=== PATIENT | male | born 1965 | race Caucasian/White ===

== ENCOUNTER 2017-02-15 09:23 | Emergency (ER) | payer OTHER ==
[2017-02-15 09:23] VITALS: BMI 24.7
--- NOTE | 2017-02-15 09:46 | ED PDOC ---
HPI: Back Time Seen by Provider: 02/15/17 09:33 Chief Complaint (Nursing): Back Pain History Per: Patient (Sharp right flank pain radiating to front since yesterday. Denies nausea. Assoc with dysuria no fever. No back injury) Onset/Duration Of Symptoms: Days (2) Quality Of Discomfort: Sharp Severity: Moderate Pain Scale Rating Of: 3 Previous Symptoms: Back Pain Associated Symptoms: None Exacerbating Factor(s): Movement Past Medical History Vital Signs: Last Vital Signs Temp 97.7 F 02/15/17 09:28 Pulse 46 L 02/15/17 09:28 Resp 18 02/15/17 09:28 BP 178/81 H 02/15/17 09:28 Pulse Ox 100 02/15/17 09:28 - Medical History PMH: Back Problems, HTN - Family History Family History: States: Unknown Family Hx - Home Medications Home Medications: Ambulatory Orders Medication Instructions Recorded Cyclobenzaprine [Cyclobenzaprine 10 mg PO TID #10 tab 02/15/17 HCl] Naproxen [Naprosyn] 500 mg PO Q12H #20 tab 02/15/17 - Allergies Allergies/Adverse Reactions: Allergies Allergy/AdvReac Type Severity Reaction Status Date / Time No Known Allergies Allergy Verified 06/27/14 16:01 Review of Systems ROS Statement: Except As Marked, All Systems Reviewed And Found Negative Constitutional: Negative for: Fever Gastrointestinal: Negative for: Nausea Genitourinary Male: Positive for: Dysuria Musculoskeletal: Positive for: Back Pain Physical Exam - Physical Exam Appears: Positive for: Non-toxic, Uncomfortable Skin: Positive for: Normal Color, Warm, DRY Gastrointestinal/Abdominal: Positive for: Bowel Sounds, Soft. Negative for: Tenderness Back: Positive for: Normal Inspection, Muscle Spasm. Negative for: Vertebral Tenderness - Laboratory Results Result Diagrams: 02/15/17 10:00 02/15/17 10:00 - ECG O2 Sat by Pulse Oximetry: 100 Disposition - Clinical Impression Clinical Impression: Back pain, Back strain - Patient ED Disposition Is Patient to be Admitted: No Counseled Patient/Family Regarding: Studies Performed, Diagnosis, Need For Followup, Rx Given - Disposition Referrals: [facility] [Outside] Disposition: Routine/Home Disposition Time: 11:12 Condition: FAIR Prescriptions: Cyclobenzaprine [Cyclobenzaprine HCl] 10 mg PO TID #10 tab Naproxen [Naprosyn] 500 mg PO Q12H #20 tab Instructions: Acute Low Back Pain (ED) Print Language: TURKISH
[2017-02-15 10:08] LABS: BASO % 0.4 % (0.0-2.0); EOS # 0.1 K/uL (0.0-0.7); HEMATOCRIT 46.9 % (35.0-51.0); LYMPH # 3.2 K/uL (1.0-4.3); LYMPH % 41.5 % (20.0-40.0); MEAN CELL VOLUME 86.4 fl (80.0-94.0); MEAN CORPUSCULAR HEMOGLOBIN 27.6 pg (27.0-31.0); MEAN CORPUSCULAR HGB CONC 31.9 g/dL (33.0-37.0); MEAN PLATELET VOLUME 8.1 fl (7.2-11.7); MONO # 0.5 K/uL (0.0-0.8); MONO % 6.4 % (0.0-10.0); NEUT # 3.8 K/uL (1.8-7.0); NEUT % 49.7 % (50.0-75.0); RED CELL DISTRIBUTION WIDTH 13.2 % (11.5-14.5); WHITE BLOOD COUNT 7.7 K/uL (4.8-10.8)
[2017-02-15 10:20] LABS: ALB/GLOB RATIO 1.3 (1.0-2.1); ALKALINE PHOSPHATASE 112 U/L (38-126); ALT/SGPT 51 U/L (21-72); AST/SGOT 38 U/L (17-59); BILIRUBIN,TOTAL 1.3 mg/dl (0.2-1.3); BLOOD UREA NITROGEN 18 mg/dl (9-20); CALCIUM 9.7 mg/dL (8.4-10.2); CARBON DIOXIDE 26 mmol/L (22-30); CHLORIDE 104 mmol/L (98-107); GFR AFRICAN-AMERICAN > 60; GLUCOSE,RANDOM 89 mg/dL (75-110); POTASSIUM 4.6 MMOL/L (3.6-5.0); SODIUM 143 mmol/l (132-148); TOTAL PROTEIN 8.6 G/DL (6.3-8.2)
--- NOTE | 2017-02-15 11:03 | US ---
PROCEDURE: Ultrasound of the Kidneys HISTORY: Right flank pain r/o stone COMPARISON: None available. TECHNIQUE: Sonogram of the kidneys. FINDINGS: Examination markedly limited in part due to excessive bowel gas. RIGHT KIDNEY: Measures: 10.6 x 5.1 x 5.7 cm. No obstructing calculus, hydronephrosis, or cyst identified. LEFT KIDNEY: Measures: 10.8 x 5.5 x 5.9 cm. No obstructing calculus, hydronephrosis, or cyst identified. OTHER FINDINGS: Under distention of the urinary bladder limits evaluation. IMPRESSION: Limited study. No obstructing calculus, hydronephrosis, or cyst identified.
[2017-02-15 11:30] VITALS: BP 166/72; PULSE 55; RESP 16; TEMP 97; O2SAT 99
== END 2017-02-15 11:30 | disposition home or self-care (01) ==
LOC: H.ER 09:23
DX: M54.5 Low back pain (principal); R30.0 Dysuria

== ENCOUNTER 2017-04-05 19:17 | Emergency (ER) | payer SELFPAY ==
[2017-04-05 19:18] VITALS: BMI 24.7
[2017-04-05 19:32] VITALS: RESP 16
--- NOTE | 2017-04-05 20:21 | ED PDOC ---
"HPI: Back Time Seen by Provider: 04/05/17 19:22 Chief Complaint (Nursing): Back Pain Chief Complaint (Provider): Flank Pain History Per: Patient History/Exam Limitations: no limitations Onset/Duration Of Symptoms: Days (x3 days) Current Symptoms Are (Timing): Still Present Exacerbating Factor(s): Movement Additional Complaint(s): Susana Amezcua, a 51 year old male, presents to the ED complaining of radiating right sided flank pain x3 days. The patient states that the pain is constant in his lower back and is radiating to his right groin. He states that the pain is exacerbated by movement and bending. The patient reports that he took ibuprofen which offered only mild relief. He states that he had an US done here at [place] last year and the results were normal. Denies vomiting, hematuria, dysuria,rash, fevers. - Risk Factors AAA Risk Factors: Pos: Older Than 49 Years Of Age Past Medical History Reviewed: Historical Data, Nursing Documentation, Vital Signs Vital Signs: Last Vital Signs Temp 97.6 F 04/05/17 19:30 Pulse 57 L 04/05/17 19:30 Resp 16 04/05/17 19:30 BP 162/101 H 04/05/17 19:30 Pulse Ox 100 04/05/17 19:30 - Medical History PMH: Back Problems, HTN - Family History Family History: States: Unknown Family Hx - Home Medications Home Medications: Ambulatory Orders Medication Instructions Recorded Cyclobenzaprine [Cyclobenzaprine 10 mg PO TID #15 tab 04/05/17 HCl] Ibuprofen [Motrin] 600 mg PO Q6H 04/05/17 Naproxen 500 mg PO BID #20 tab 04/05/17 - Allergies Allergies/Adverse Reactions: Allergies Allergy/AdvReac Type Severity Reaction Status Date / Time No Known Allergies Allergy Verified 06/27/14 16:01 Review of Systems ROS Statement: Except As Marked, All Systems Reviewed And Found Negative Constitutional: Negative for: Fever Genitourinary Male: Negative for: Dysuria, Hematuria, Rash Musculoskeletal: Positive for: Back Pain (Right sided flank pain), Other (Groin Pain) Skin: Negative for: Rash Physical Exam - Reviewed Nursing Documentation Reviewed: Yes Vital Signs Reviewed: Yes - Physical Exam Appears: Positive for: Non-toxic, No Acute Distress Head Exam: Positive for: ATRAUMATIC, NORMAL INSPECTION, NORMOCEPHALIC Skin: Positive for: Normal Color, Warm, Dry Eye Exam: Positive for: Normal appearance, EOMI, PERRL ENT: Positive for: Normal ENT Inspection Neck: Positive for: Normal, Painless ROM, Supple Cardiovascular/Chest: Positive for: Regular Rate, Rhythm, Chest Non Tender. Negative for: Tachycardia Respiratory: Positive for: Normal Breath Sounds. Negative for: Wheezing, Respiratory Distress Gastrointestinal/Abdominal: Positive for: Normal Exam, Bowel Sounds, Soft. Negative for: Tenderness, Guarding, Rebound Back: Positive for: Normal Inspection. Negative for: L CVA Tenderness, R CVA Tenderness Extremity: Positive for: Normal ROM. Negative for: Tenderness, Pedal Edema, Deformity, Swelling Neurologic/Psych: Positive for: Alert, Oriented, Gait - Laboratory Results Result Diagrams: 04/05/17 20:08 04/05/17 20:08 - ECG O2 Sat by Pulse Oximetry: 100 (RA) Pulse Ox Interpretation: Normal - Progress Re-evaluation Time: 22:39 Condition: Re-examined, Improved Medical Decision Making Medical Decision Makin Initial impression: 51 year old male presenting with flank pain Differentials: lumbar neuropathy, musculoskeletal pain, less likely renal colic , early presentation of shingles w/o rash Initial Plan: * CT ABD&PELV w/o PO or IV contrast * Basic Metabolic Panel * Udip * CBC * Flexeril 10mg PO * Toradol 30mg IVP * Reevaluation * * COMPARISON: No relevant prior studies available. FINDINGS: Lower thorax: 0.2 cm subpleural nodule LEFT lower lobe. ABDOMEN: Liver: Unremarkable. Gallbladder and bile ducts: No calcified stones. No ductal dilation. Pancreas: Unremarkable. No ductal dilation. Spleen: No splenomegaly. Adrenals: No mass. Kidneys and ureters: No renal calculi. No hydronephrosis. Stomach and bowel: No definite mural thickening. No obstruction. Appendix: Normal caliber. No inflammation. PELVIS: Bladder: Apparent mild bladder wall thickening. Incomplete distention, limiting evaluation. No stones. Reproductive: Mildly enlarged prostate. ABDOMEN and PELVIS: Intraperitoneal space: No significant fluid collection. No free air. Bones/joints: Probable bone islands. No acute fracture. Soft tissues: Small RIGHT inguinal hernia containing fat. Vasculature: Unremarkable. No aneurysm. SUSANA ARZATE | Final Radiology Report CONFIDENTIALITY STATEMENT This report is intended only for use by the referring physician, and only in accordance with law. If you received this in error, call [phone]. Page 2 of 2 Lymph nodes: No pathologically enlarged lymph nodes. IMPRESSION: 1. No CT evidence of urolithiasis. 2. Possible bladder wall thickening, nonspecific. Clinical correlation is needed. 3. Pulmonary nodule. For low-risk patients, no follow-up is necessary. For high- risk patients (smoking history or other known risk factors) an optional CT at 12 months could be performed. 4. Incidental/non-acute findings are described above. Thank you for allowing us to participate in the care of your patient. Dictated and Authenticated by: Chace Morales MD 04/05/2017 9:08 PM Eastern Time ([place] & [place]) - Scribe Attestation Documented by Jeannette Franco acting as a scribe for Mckenzie Charles MD. Provider Attestation: All medical record entries made by the Scribe were at my direction and personally dictated by me. I have reviewed the chart and agree that the record accurately reflects my personal performance of the history, physical exam, medical decision making, and the department course for this patient. I have also personally directed, reviewed, and agree with the discharge instructions and disposition. Disposition - Clinical Impression Clinical Impression: Flank pain, Lumbar radiculopathy - Patient ED Disposition Is Patient to be Admitted: No Doctor Will See Patient In The: Office Counseled Patient/Family Regarding: Studies Performed, Diagnosis, Need For Followup - Disposition Referrals: [facility] [Outside] Disposition: Routine/Home Disposition Time: 22:40 Condition: GOOD Additional Instructions: take your medications as instructed. Follow up with your PCP in 2-3 days. Prescriptions: Cyclobenzaprine [Cyclobenzaprine HCl] 10 mg PO TID #15 tab Naproxen 500 mg PO BID #20 tab Instructions: Flank Pain (ED)"
[2017-04-05 20:24] LABS: BASO % 0.5 % (0.0-2.0); EOS # 0.2 K/uL (0.0-0.7); EOS % 2.2 % (0.0-4.0); HEMATOCRIT 43.3 % (35.0-51.0); LYMPH # 2.6 K/uL (1.0-4.3); LYMPH % 35.4 % (20.0-40.0); MEAN CELL VOLUME 85.2 fl (80.0-94.0); MEAN CORPUSCULAR HEMOGLOBIN 28.3 pg (27.0-31.0); MEAN CORPUSCULAR HGB CONC 33.2 g/dL (33.0-37.0); MEAN PLATELET VOLUME 7.9 fl (7.2-11.7); MONO # 0.5 K/uL (0.0-0.8); MONO % 7.3 % (0.0-10.0); NEUT % 54.6 % (50.0-75.0); NRBC % 0.1 % (0.0-0.0); RED CELL DISTRIBUTION WIDTH 13.3 % (11.5-14.5); WHITE BLOOD COUNT 7.4 K/uL (4.8-10.8)
[2017-04-05 20:31] LABS: BLOOD UREA NITROGEN 18 mg/dl (9-20); CALCIUM 9.5 mg/dL (8.4-10.2); CARBON DIOXIDE 30 mmol/L (22-30); CHLORIDE 102 mmol/L (98-107); GFR AFRICAN-AMERICAN > 60; GLUCOSE,RANDOM 93 mg/dL (75-110); POTASSIUM 4.3 MMOL/L (3.6-5.0); SODIUM 139 mmol/l (132-148)
--- NOTE | 2017-04-05 21:08 | CT ---
EXAM: CT Abdomen and Pelvis Without Intravenous Contrast CLINICAL HISTORY: 51 years old, male; Pain; Abdominal pain; Localized; Right; Additional info: Right flank pain TECHNIQUE: Axial computed tomography images of the abdomen and pelvis without intravenous contrast. This CT exam was performed using one or more of the following dose reduction techniques: automated exposure control, adjustment of the mA and/or kV according to patient size, and/or use of iterative reconstruction technique. Coronal and sagittal reformatted images were created and reviewed. COMPARISON: No relevant prior studies available. FINDINGS: Lower thorax: 0.2 cm subpleural nodule LEFT lower lobe. ABDOMEN: Liver: Unremarkable. Gallbladder and bile ducts: No calcified stones. No ductal dilation. Pancreas: Unremarkable. No ductal dilation. Spleen: No splenomegaly. Adrenals: No mass. Kidneys and ureters: No renal calculi. No hydronephrosis. Stomach and bowel: No definite mural thickening. No obstruction. Appendix: Normal caliber. No inflammation. PELVIS: Bladder: Apparent mild bladder wall thickening. Incomplete distention, limiting evaluation. No stones. Reproductive: Mildly enlarged prostate. ABDOMEN and PELVIS: Intraperitoneal space: No significant fluid collection. No free air. Bones/joints: Probable bone islands. No acute fracture. Soft tissues: Small RIGHT inguinal hernia containing fat. Vasculature: Unremarkable. No aneurysm. Lymph nodes: No pathologically enlarged lymph nodes. IMPRESSION: 1. No CT evidence of urolithiasis. 2. Possible bladder wall thickening, nonspecific. Clinical correlation is needed. 3. Pulmonary nodule. For low-risk patients, no follow-up is necessary. For high-risk patients (smoking history or other known risk factors) an optional CT at 12 months could be performed. 4. Incidental/non-acute findings are described above.
[2017-04-05 22:50] VITALS: BP 122/78; PULSE 62; TEMP 98.2; O2SAT 98
== END 2017-04-05 22:50 | disposition home or self-care (01) ==
LOC: H.ER 19:17
DX: M54.16 Radiculopathy, lumbar region (principal); I10 Essential (primary) hypertension

== ENCOUNTER 2018-05-01 08:33 | Day surgery (SDC) | payer OTHER ==
[2018-05-01] MEDS ORDERED: Lactated Ringer's 500 ML IV ONE (08:54)
[2018-05-01] MEDS ORDERED: Propofol 10 mg/ml Inj (20 ML) ONE (11:32)
[2018-05-01 12:10] VITALS: TEMP 97
[2018-05-01 12:23] VITALS: BP 122/72; PULSE 52; RESP 12; O2SAT 98
== END 2018-05-01 13:33 | disposition home or self-care (01) ==
LOC: H.ENDO 08:33
PROVIDERS: ATTEND Internal Medicine Gastroenterology
DX: Z12.11 Encounter for screening for malignant neoplasm of colon (principal); K64.8 Other hemorrhoids; I10 Essential (primary) hypertension; E78.00 Pure hypercholesterolemia, unspecified
CPT/HCPCS: 45378; J2001; J2704; J7120